=== PATIENT | male | born 1995 | race Caucasian/White ===

== ENCOUNTER 2024-02-02 12:26 | Day surgery (SDC) | payer SELFPAY, OTHER ==
[2024-02-02] VITALS (8 sets, daily range): BP systolic 105–138; BP diastolic 56–72; PULSE 63–75; RESP 14–16; TEMP 36.3–37.3; O2SAT 94–98; BMI 29.5
[2024-02-02] MEDS: Lactated Ringers 1,000 ML 15 ML IV (12:59)
[2024-02-02] MEDS: Cefazolin 2 GM in 0.9% Normal Saline (100mL Bag) 100 ML IV (14:45)
--- NOTE | 2024-02-02 15:09 | RAD_ITS ---
STUDY: X-RAY - LEFT ELBOW REASON FOR EXAM: Male, 28 years old. FX TECHNIQUE: 5 view(s) of the elbow. COMPARISON: None. FINDINGS: Fluoroscopy of the left elbow was utilized operating room during open reduction internal fixation of fracture of the olecranon of the ulna with a screw and 5 images are submitted for interpretation. . RAD/Elbow 2 Views IMPRESSION: Fluoroscopy during open reduction internal fixation of fracture of the olecranon of the ulna. Electronically Signed: Andi Hopkins MD at 22:41 EDT ,
--- NOTE | 2024-02-02 16:01 | PCM.OPRPT ---
Report of Operation Date of Procedure: 02/02/24 Pre-Operative Diagnosis: Left olecranon fracture Post-Operative Diagnosis: Left olecranon fracture Surgery/Procedure Performed:: Open reduction internal fixation left olecranon fracture Description of Surgical Findings:: Stable well reduced fracture. Patient did have 2 small fragments of devascularized articular fragments which were debrided from the wound. Patient had central scalp defect on distal humerus cartilage. Surgeon: Krzysztof Fuentes medical records field technician: Dale Perez Type of Anesthesia: General Anesthesiologist: Milind Mott Special Medications: Ancef Estimated Blood Loss (mL): 15 Fluids Replaced: 1200 mL crystalloid Description of Procedure: Patient was seen and evaluated in the preoperative area. History and physical was reviewed with the patient. All questions were answered in regards to surgery and postoperative expectations. Again reviewed the risks and benefits with the patient of the procedure including but not limited to blood loss, DVTs, PEs, nervous damage, infection, and risk of anesthesia including loss of life. Nonunion, malunion and hardware failure. Patient had similar discussion with my partner in the office and was referred to me for further care. After discussing the case my partner elected to assume his care. Patient demonstrated comfortability with this was marked in the preoperative area and his left arm. After marking the patient he was taken back to the room by anesthesia and transferred to the table in the supine position. Anesthesia assumed control C-spine and airway remained controlled throughout the remainder of the procedure. Once patient was adequately anesthetized he was placed in lateral cubitus position in a beanbag. His left arm was placed over pillow so his elbow could hang at 90 degrees. Once were happy with the position the patient we also placed a axillary roll and padded all bony prominences. At this time tourniquet was placed on the left upper arm. Left upper extremity was then prepped in a sterile fashion while the surgeon scrubbed. Upon reentering the room the left upper extremity was draped in a standard orthopedic fashion. Timeout was called and everyone agreed upon the side, the site, procedure to be performed, patient's identity and antibiotics given. At this time the Esmarch bandage was used to exsanguinate the extremity and tourniquet was placed up to 250 mmHg. The incision was made in a curvilinear fashion in order to avoid skin abrasions. Cutaneous flaps were elevated bursa was resected and fracture hematoma was encountered. Fracture hematoma was debrided. Bone ends were exposed and a clamp was placed on the fracture to reduce it. Once the clamp was placed and the fracture live x-ray was used to verify fracture reduction AP and lateral planes. Once this was done we placed a guidepin from the proximal olecranon down the shaft. Live x-rays used to verify fracture reduction was maintained and placement the pin. Once this was done we elected to use 100 mm 6.5 millimeters screw with a washer. The proximal cortex was drilled while the clamp was left in place.. The screw was then advanced by power initially and then tightened finally by hand. Live x-ray was used to verify fracture reduction was maintained and compressed and placement of the screw. Once we are happy with this the wound was reza irrigated with normal saline. We did do a triceps split in order to bury the screw. The triceps was repaired over the screw with a #1 Vicryl. Skin was closed with 2-0 Vicryl and final skin closure was done with nylon sutures. Once this was completed Xeroform dressing was placed. This compressed dressing was placed. Tourniquet was let down. Posterior splint was placed and patient was transferred to the bed for recovery and back to the PACU in stable condition. Postop plan: Nonweightbearing for a total of 6 weeks. Spinal we removed and range of motion exercise should be started at his 2-week visit. Patient was given a prescription of oxycodone and instructed to take Tylenol and ibuprofen for pain primarily. My physician day care assistant was vital throughout this case. His vital her position the patient is on help retracting vital structures and neurovascular structures. He was vital helping obtain and maintain reduction. Finally was vital closure and splinting under my direct supervision. Grafts/Implants Used: Christopher 6.5 mm cannulated screw 100 mm with washer Complications No intraoperative complications
[2024-02-02] MEDS: Ketorolac 30 MG/ML Syringe IV (16:50)
== END 2024-02-02 18:22 | disposition home or self-care (01) ==
LOC: SDC 12:28 → AC 12:30
PROVIDERS: PCP Family Medicine; Referring Provider Specialist; Visit Provider Specialist
PROC: (CPT 24685; principal; 2024-02-02 15:15)
DX: S52.022A Displaced fracture of olecranon process without intraarticular extension of left ulna, initial encounter for closed fracture (principal); E66.3 Overweight; Z68.29 Body mass index [BMI] 29.0-29.9, adult; W11.XXXA Fall on and from ladder, initial encounter
CPT/HCPCS: 24685; 64450; 01740; 73070; 76000; C1713; J7120; J2405